=== PATIENT | male | born 1935 ===

== ENCOUNTER → 2024-02-19 | Outpatient (REF) | payer SELFPAY ==
[2024-02-19 11:10] LABS: Anion Gap 6 (5-15); BUN 20 mg/dL (7-18); Chloride 106 mmol/L (98-107); Cholesterol 136 mg/dL (200); Creatinine, Serum 0.72 mg/dL (0.70-1.30); EST Glomerular Filtration Rate 111 mL/min (>60); Est Glom Filt Rate - Afr Amer 134 mL/min (>60); Glucose 120 mg/dL (74-106); High Density Lipoprotein 45 mg/dL; Sodium Level 140 mmol/L (136-145); Triglycerides 195 mg/dL; Very Low Density Lipoprotein 39 mg/dL (5-40)
== END ==
LOC: OLS.WHLEAS 05:00
PROVIDERS: Visit Provider Internal Medicine
DX: E11.40 Type 2 diabetes mellitus with diabetic neuropathy, unspecified (principal); G90.3 Multi-system degeneration of the autonomic nervous system; J09.X9 Influenza due to identified novel influenza A virus with other manifestations; E11.3599 Type 2 diabetes mellitus with proliferative diabetic retinopathy without macular edema, unspecified eye